=== PATIENT | male | born 1995 | race Caucasian/White ===

== ENCOUNTER 2018-09-06 21:33 | Emergency (ER) | payer OTHER ==
[~2018-09-06] VITALS: Ht 175.3 cm; Wt 85.0 kg
[2018-09-06 21:57] VITALS: BP 141/82
[2018-09-06] MEDS ORDERED: HYDROmorphone 2 MG/ML, 1ML ONE (22:13)
[2018-09-06] MEDS ORDERED: PROPOFOL 10 MG/ML, 20ML ONE (22:18)
[2018-09-06] MEDS ORDERED: HYDROmorphone 1 MG/ML, 1ML IV ONE (22:30)
[2018-09-06] MEDS ORDERED: PROPOFOL 10 MG/ML, 20ML IVPush ONE (22:30)
[2018-09-07] MEDS ORDERED: PROPOFOL 10 MG/ML, 20ML IVPush ONE
== END 2018-09-07 00:11 | disposition home or self-care (01) ==
LOC: ED 23:59
DX: S43.005A Unspecified dislocation of left shoulder joint, initial encounter (principal); X50.9XXA Other and unspecified overexertion or strenuous movements or postures, initial encounter; Y99.8 Other external cause status; Y93.67 Activity, basketball; Y92.89 Other specified places as the place of occurrence of the external cause
CPT/HCPCS: 23650; 73020; 73030; 96374; 99285; J1170; J2704